=== PATIENT | female | born 1980 | race Caucasian/White ===

== ENCOUNTER 2018-02-20 07:51 | Emergency (ER) | payer OTHER ==
[2018-02-20 08:07] VITALS: BMI 31.3
[2018-02-20 09:16] LABS: BASO % 0.4 % (0-2.0); EOS % 0.2 % (0-4.5); HEMATOCRIT 40.2 % (32.4-45.2); HEMOGLOBIN 13.9 GM/dL (10.7-15.3); LYMPH % 22.1 % (8-40); MCHC 34.4 g/dl (32.0-36.0); MONO % 7.7 % (3.8-10.2); NEUT % 69.6 % (42.8-82.8); PLATELET COUNT 236 K/MM3 (134-434); RBC 4.62 M/mm3 (3.60-5.2); RDW 12.8 % (11.6-15.6)
[2018-02-20 09:17] LABS: URINE APPEARANCE SLCLOUDY; URINE BILIRUBIN NEGATIVE (<2.0 mg/dL); URINE BLOOD 3+ (NEGATIVE); URINE COLOR YELLOW; URINE GLUCOSE (UA) NEGATIVE (NEGATIVE); URINE KETONE NEGATIVE (NEGATIVE); URINE LEUK ESTERASE NEGATIVE (NEGATIVE); URINE NITRITE NEGATIVE (NEGATIVE); URINE PROTEIN NEGATIVE (NEGATIVE); URINE UROBILINOGEN NEGATIVE mg/dL (0.2-1.0)
[2018-02-20 09:31] LABS: EPI CELLS RARE /HPF (FEW); URINE MUCUS RARE
--- NOTE | 2018-02-20 10:00 | PDOC ---
History of Present Illness - General Chief Complaint: Vaginal Bleeding Stated Complaint: VAGINAL BLEEDING (14 WEEKS) Time Seen by Provider: 02/20/18 08:22 History Source: Patient Exam Limitations: No Limitations - History of Present Illness Travel History: No Initial Comments: 02/20/18 08:55 37-year-old female approximately 14 weeks based on her LMP presents to the ED with complaints of low back pain that began yesterday afternoon followed by bright red blood at around 2 AM this morning. Patient states has changed the pad once but denies large clots or excessive bleeding presently. Patient states was on Clomid for the past 8 months before she was able to get and is concerned that she might be miscarrying. Patient has no abdominal pain, urinary complaints nausea, weakness, or dizziness. Timing/Duration: reports: constant Quality: reports: mild Abdominal Pain Onset Location: reports: other (low back) Activities at Onset: reports: none Aggravating Factors: improves with: None Alleviating Factors: improves with: None Past History - Travel Traveled outside of the country in the last 30 days: No - Past Medical History Allergies/Adverse Reactions: Allergies Allergy/AdvReac Type Severity Reaction Status Date / Time [place] And Derivatives Allergy Verified 02/20/18 08:07 Home Medications: Ambulatory Orders NK [No Known Home Medication] 09/01/15 COPD: No - Reproductive History Is Patient Now?: Yes (#): 2 Para: 1 Cervical CA: No Dysfunctional Uterine Bleeding: No Ectopic : No Endometrial CA: No Polycystic Ovaries: No Therapeutic (s) & number: No Tubal Ligation: No Spontaneous : 0 - Suicide/Smoking/Psychosocial Hx Smoking History: Never smoked Have you smoked in the past 12 months: No Hx Alcohol Use: No Drug/Substance Use Hx: No Substance Use Type: None Patient Lives Alone: No Lives with/in: spouse/SO Review of Systems - Review of Systems Able to Perform ROS?: Yes Constitutional: No: Symptoms Reported HEENTM: No: Symptoms Reported Respiratory: No: Symptoms reported Cardiac (ROS): No: Symptoms Reported ABD/GI: No: Nausea, Vomiting, Abdominal cramping : Yes: Discharge (vaginal bleeding) Musculoskeletal: Yes: Back Pain Integumentary: No: Symptoms Reported Neurological: No: Symptoms reported Hematologic/Lymphatic: No: Symptoms Reported *Physical Exam - Vital Signs Last Vital Signs Temp Pulse Resp BP Pulse Ox 98.5 F 74 18 138/91 100 02/20/18 08:04 02/20/18 08:04 02/20/18 08:04 02/20/18 08:04 02/20/18 08:04 - Physical Exam General Appearance: Yes: Nourished, Appropriately Dressed. No: Apparent Distress HEENT: negative: Pale Conjunctivae Neck: positive: Normal Thyroid, Supple Cardiovascular: positive: Regular Rhythm, Regular Rate. negative: Murmur Female Pelvic Exam: positive: cervical os closed, vaginal bleeding (moderate amount of bright red blood) Gastrointestinal/Abdominal: positive: Soft, Tenderness (mild mid suprapubic) Integumentary: positive: Normal Color, Warm, Moist Neurologic: positive: Motor Strength 5/5 (ambulatory) ED Treatment Course - LABORATORY CBC & Chemistry Diagram: 02/20/18 09:12 02/20/18 09:12 - ADDITIONAL ORDERS Additional order review: Laboratory Results 02/20/18 09:12 Urine Color Yellow Urine Appearance Slcloudy Urine pH 6.0 Ur Specific [place] 1.017 Urine Protein Negative Urine Glucose (UA) Negative Urine Ketones Negative Urine Blood 3+ H Urine Nitrite Negative Urine Bilirubin Negative Urine Urobilinogen Negative Ur Leukocyte Esterase Negative 02/20/18 09:12 RBC 4.62 MCV 87.0 MCHC 34.4 RDW 12.8 MPV 9.0 Neutrophils % 69.6 Lymphocytes % 22.1 Monocytes % 7.7 Eosinophils % 0.2 Basophils % 0.4 - RADIOLOGY Radiology Studies Ordered: Category Date Time Status <14WKS US [US] Stat Ultrasound 02/20/18 08:28 Ordered Medical Decision Making - Medical Decision Making 02/20/18 09:09 Patient for evaluation of vaginal bleeding since 2 AM this morning. Patient states is approximately 14 weeks based on LMP and is followed in the [place] for [facility]. Patient states was on Clomid for the past 8 months prior to getting . Patient states has one child presently . Patient denies miscarriages or abortions. Differential diagnosis to include threatened AB, vaginal bleeding in , Urinary tract infection Type and screen, CBC, comp, urinalysis urine culture and ultrasound ordered. Patient offered Tylenol but refused presently. 02/20/18 10:01 Laboratory Tests 02/20/18 02/20/18 02/20/18 09:12 09:12 09:12 WBC 9.0 Hgb 13.9 Hct 40.2 Plt Count 236 Neutrophils % 69.6 Urine Blood 3+ H Urine Nitrite Negative Ur Leukocyte Esterase Negative Urine WBC (Auto) 1 Urine RBC (Auto) 31 Urine Mucus Rare Blood Type Pending Antibody Screen Pending Ultrasound shows 12 weeks gestational age with no heart rate suggestive of demise. Will await blood type and chemistry. patient will be discharged to follow-up with her [facility]. 02/20/18 10:15 Laboratory Tests 02/20/18 02/20/18 09:12 09:12 Sodium 139 Potassium 3.9 Chloride 105 Carbon Dioxide 23 Anion Gap 11 BUN 7 Creatinine 0.6 Random Glucose 88 Calcium 8.9 Total Bilirubin 0.3 AST 11 L ALT 19 Alkaline Phosphatase 65 Total Protein 7.1 Albumin 3.4 Blood Type O POSITIVE Antibody Screen Negative *DC/Admit/Observation/Transfer Diagnosis at time of Disposition: demise before 20 weeks with retention of fetus - Discharge Dispostion Disposition: HOME Condition at time of disposition: Good - Referrals Referrals: Cata Clark MD [Primary Care Provider] - - Patient Instructions Printed Discharge Instructions: DI for Miscarriage Additional Instructions: At this time I recommend that you follow-up with your [facility] to discuss a D&C Since you may not pass this on your own. But understanding if you start to have heavy bleeding ,soaking pads every hour or develop severe abdominal cramping, to return to the ED immediately. If bleeding is moderate in you have moderate abdominal cramping, I recommend you take Tylenol Extra Strength for pain - Post Discharge Activity
[2018-02-20 10:07] LABS: ALBUMIN 3.4 g/dl (3.4-5.0); ALK PHOS 65 U/L (45-117); ANION GAP 11 (8-16); BILIRUBIN,TOTAL 0.3 mg/dL (0.2-1.0); BLOOD UREA NITROGEN 7 mg/dL (7-18); CALCIUM 8.9 mg/dL (8.5-10.1); CHLORIDE 105 mmol/L (98-107); CO2 23 mmol/L (21-32); CREATININE 0.6 mg/dL (0.55-1.02); GLUCOSE,RANDOM 88 mg/dL (74-106); POTASSIUM 3.9 mmol/L (3.5-5.1); SGOT/AST 11 U/L (15-37); SGPT/ALT 19 U/L (12-78); SODIUM 139 mmol/L (136-145); TOT PROT 7.1 g/dl (6.4-8.2)
[2018-02-20] MEDS ORDERED: ACETAMINOPHEN 500 MG TABLET (FP) PO ONE (10:26)
[2018-02-20] MEDS ORDERED: ACETAMINOPHEN 325 MG TABLET (FP) ONE (10:34)
[2018-02-20 10:57] VITALS: BP 125/71; PULSE 82; TEMP 98.1
== END 2018-02-20 10:45 | disposition home or self-care (01) ==
LOC: JER 07:51
DX: O26.891 Other specified pregnancy related conditions, first trimester (principal); O02.1 Missed abortion; Z3A.12 12 weeks gestation of pregnancy
CPT/HCPCS: 36415; 76801-TC; 80053; 81003; 81015; 85025; 86850; 86900; 86901; 87086; 99283-25

== ENCOUNTER 2021-09-23 18:32 | Emergency (ER) | payer OTHER ==
[2021-09-23 18:45] VITALS: TEMP 97.9; BMI 32.4
[2021-09-23] MEDS ORDERED: ACETAMINOPHEN 500 MG TABLET (FP) PO ONE (21:25)
[2021-09-23] MEDS ORDERED: ACETAMINOPHEN 500 MG TABLET (FP) ONE (21:43)
[2021-09-23 22:05] LABS: BASO % 0.7 % (0-2.0); EOS % 0.9 % (0-4.5); HEMOGLOBIN 14.1 GM/dL (10.7-15.3); LYMPH % 32.1 % (8-40); MCH 29.8 pg (25.7-33.7); MCHC 34.4 g/dl (32.0-36.0); MEAN CELL VOLUME 86.8 fl (80-96); MEAN PLT VOLUME 8.8 fl (7.5-11.1); MONO % 9.7 % (3.8-10.2); NEUT % 56.6 % (42.8-82.8); PLATELET COUNT 283 10^3/uL (134-434); RBC 4.73 M/mm3 (3.60-5.2); RDW 12.9 % (11.6-15.6); WHITE BLOOD COUNT 9.3 K/mm3 (4.0-10.0)
[2021-09-23 22:18] LABS: INR 0.99 (0.83-1.09); PROTHROMBIN TIME (PATIENT) 11.1 SEC (9.7-13.0)
[2021-09-23 22:21] LABS: ACTIVATED PTT 36.3 SECONDS (25.2-36.5)
[2021-09-23 22:24] LABS: CHLORIDE 107 mmol/L (98-107); SODIUM 141 mmol/L (136-145)
[2021-09-23 22:26] LABS: CALCIUM 9.2 mg/dL (8.5-10.1)
[2021-09-23 22:27] LABS: ALBUMIN 3.5 g/dl (3.4-5.0); ANION GAP 3 MMOL/L (8-16); BLOOD UREA NITROGEN 11.8 mg/dL (7-18); CO2 30 mmol/L (21-32); GLUCOSE,RANDOM 99 mg/dL (74-106); MAGNESIUM 2.2 mg/dL (1.8-2.4)
[2021-09-23 22:30] LABS: CREATININE 0.8 mg/dL (0.55-1.3); SGOT/AST 17 U/L (15-37); SGPT/ALT 29 U/L (13-61)
[2021-09-23 22:32] LABS: BILIRUBIN,TOTAL 0.2 mg/dL (0.2-1); TOT PROT 7.8 g/dl (6.4-8.2)
[2021-09-23 22:33] LABS: ALK PHOS 94 U/L (45-117)
[2021-09-23 23:38] VITALS: BP 148/60; PULSE 80
== END 2021-09-23 23:38 | disposition home or self-care (01) ==
LOC: JER 18:32
DX: R07.9 Chest pain, unspecified (principal)
CPT/HCPCS: 36415; 71046-TC-FY; 80053; 82550; 83735; 84484; 85025; 85379; 85610; 85730; 93005; 93010; 99285-25; C9803; U0003; U0005

== ENCOUNTER 2021-12-02 04:12 | Day surgery (SDC) | payer OTHER ==
[2021-11-27 12:05] VITALS: BMI 34.9
[2021-12-02] MEDS ORDERED: BUPIVACAINE HCL/PF 0.5% (5MG/ML) 10 ML VIAL ONE ×2 (07:22→07:28)
[2021-12-02] MEDS ORDERED: GLYCOPYRROLATE 0.2 MG/1 ML VIAL ONE (07:36)
[2021-12-02] MEDS ORDERED: DEXAMETHASONE SOD PHOSPHATE 4 MG/1 ML VIAL ONE (07:36)
[2021-12-02] MEDS ORDERED: DEXTROSE 50%-WATER 25 GM/50 ML DISP.SYRIN ONE (07:36)
[2021-12-02] MEDS ORDERED: PHENYLEPHRINE HCL 10 MG/1 ML SINGLE DOSE VIAL ONE (07:36)
[2021-12-02] MEDS ORDERED: LIDOCAINE HCL/PF 2% SDV 5ML VIAL ONE (07:36)
[2021-12-02] MEDS ORDERED: ROCURONIUM BROMIDE 50 MG/5 ML SYRINGE ONE (07:37)
[2021-12-02] MEDS ORDERED: MIDAZOLAM HCL 2 MG/2 ML SINGLE DOSE VIAL ONE (07:37)
[2021-12-02] MEDS ORDERED: fentaNYL CITRATE 250 MCG/5 ML VIAL ONE (07:37)
[2021-12-02] MEDS ORDERED: PROPOFOL 20 ML ONE ×4 (07:37→09:01)
[2021-12-02] MEDS ORDERED: LACTATED RINGERS SOLUTION 1,000 ML IV SCH (08:15)
[2021-12-02] MEDS ORDERED: ACETAMINOPHEN 325 MG TABLET (FP) PO PRN (08:15)
[2021-12-02] MEDS ORDERED: IBUPROFEN 600 MG TABLET (FP) PO PRN (08:15)
[2021-12-02] MEDS ORDERED: ceFAZolin SODIUM 1 GM VIAL IVPB ONE (08:35)
[2021-12-02] MEDS ORDERED: NEOSTIGMINE METHYLSULFATE 0.5 MG/ML - 10 ML MDV ONE (09:01)
[2021-12-02] MEDS ORDERED: BUPIVACAINE HCL/PF 0.5% (5MG/ML) 10 ML VIAL NR ONE (09:06)
[2021-12-02] MEDS ORDERED: ALBUTEROL SO4 HFA INHALER IH ONE (09:11)
[2021-12-02] MEDS ORDERED: oxyCODONE HCL 5 MG TABLET PO PRN (10:25)
[2021-12-02] MEDS ORDERED: ONDANSETRON 4 MG/2 ML VIAL IVPUSH PRN (10:25)
[2021-12-02 13:47] VITALS: BP 108/59; PULSE 72; TEMP 97.8
== END 2021-12-02 12:50 | disposition home or self-care (01) ==
LOC: JASU-SURG 04:12
PROVIDERS: ATTEND Obstetrics & Gynecology
PROC: 0UT74ZZ Resection of Bilateral Fallopian Tubes, Percutaneous Endoscopic Approach (ICD-10-PCS; principal; 2021-12-02 08:00)
DX: Z30.2 Encounter for sterilization (principal)
CPT/HCPCS: 81025; 88302-TC; 94760